=== PATIENT | female | born 1940 | race Caucasian/White ===

== ENCOUNTER 2016-11-29 05:43 | Day surgery (SDC) | payer MEDICARE, MEDICAID ==
[~2016-11-29] VITALS: Ht 152.4 cm; Wt 63.3 kg
[~2016-11-29 05:43] MED LIST: ESTR0.3T2 PO; HYDR25TA4 PO; LISI-567 PO; Lactated Ringer's 1,000 ML IV SCH; SIMV80TA4 PO
[2016-11-29] MEDS ORDERED: HYDROcodone-APAP 5-325 mg Tablet PO PRN (06:25)
[2016-11-29 06:46] VITALS: BP 141/72; PULSE 70; RESP 16; O2SAT 97
[2016-11-29] MEDS ORDERED: Lidocaine 1%-Epi 1:100,000 20 mL Inj INFILTRATE ONE (07:18)
[2016-11-29 08:05] VITALS: BP 162/81; PULSE 96; RESP 18; O2SAT 94
--- NOTE | 2016-11-29 09:41 | OP ---
[address] [id number] OPERATIVE REPORT PATIENT: BORA HERNANDEZ : 1940 MR#: [id number] ADMIT: 11/29/2016 JOB ID: [id number] DATE OF SURGERY: 11/29/2016 PREOPERATIVE DIAGNOSIS(ES): Left carpal tunnel syndrome. POSTOPERATIVE DIAGNOSIS(ES): Left carpal tunnel syndrome. PROCEDURE: Left open carpal tunnel release. SURGEON: Charles Swift D.O. ANESTHESIA: Local with lidocaine with epinephrine, total of 20 cc. BRIEF HISTORY: The patient is a 76-year-old female with a longstanding history of bilateral hand pain and paresthesias. She was originally treated with a right open carpal tunnel release done under a [place] block. She had pain with the tourniquet utilization and with failure of conservative treatment wanted to proceed with the same surgery on the left side, but wanted to do it without use of a tourniquet or any sedation. Discussed with the patient proceeding with a left open carpal tunnel release utilizing lidocaine with epinephrine. She understood the risks include, but not limited to, neurovascular injury, tendon injury, infection, failure to resolve the patient's preoperative symptoms, stiffness, persistent pain which would all require further intervention. The patient had all questions answered. Consent was signed and placed in the chart. PROCEDURE IN DETAIL: The patient was brought to the operative suite and placed supine on the operating room table. Surgical time-out was performed. Everyone in the room was in agreement. After appropriate anesthesia was obtained, a left upper extremity was then prepped and draped in a sterile fashion. A 2 cm longitudinal incision was made in line with the radial aspect of the ring finger and the ulnar aspect of the palmaris longus. The incision was kept distal to the wrist crease and proximal to Gómez cardinal line. Subcutaneous tissues were dissected with bipolar electrocautery utilized to maintain hemostasis throughout the procedure. The palmar fascia was first identified and incised longitudinally in line with the skin incision followed by exposure of the underlying transverse carpal ligament. The transverse carpal ligament was then released in its entirety to include the distal extent of the antebrachial fascia. Copious irrigation was performed followed by closure of the skin with 5-0 nylon in a simple interrupted fashion. The patient was then placed in a bulky soft dressing. ESTIMATED BLOOD LOSS: Less than 1 cc. COMPLICATIONS: None. DISPOSITION: The patient tolerated the procedure well. Anesthesia was reversed. The patient was transferred back to recovery. POSTOPERATIVE PLAN: The patient will followup in the office in two weeks. We will remove the patient's sutures at that time and have her start working on range of motion and scar mobilization.
== END 2016-11-29 23:59 | disposition home or self-care (01) ==
LOC: SAS 05:43
PROVIDERS: ATTEND Orthopaedic Surgery
DX: G56.02 Carpal tunnel syndrome, left upper limb (principal); I10 Essential (primary) hypertension; E78.5 Hyperlipidemia, unspecified; M19.90 Unspecified osteoarthritis, unspecified site; M85.80 Other specified disorders of bone density and structure, unspecified site